=== PATIENT | female | born 1990 | race Caucasian/White ===

== ENCOUNTER 2016-06-08 21:34 | Emergency (ER) | payer OTHER ==
[~2016-06-08] VITALS: Ht 152.4 cm; Wt 57.3 kg
[~2016-06-08 21:34] MED LIST: BCP DAILY; [UNRECOGNIZED DRUG - REMARK]
[2016-06-08] MEDS ORDERED: LIDOCAINE/EPINEPH/TETRACAINE 1 EA SYR EXT STA (21:39)
[2016-06-08 21:40] VITALS: TEMP 36.8; Ht 152.4 cm; Wt 57.3 kg
[2016-06-08 22:05] LABS: BASO % 0.2 %; BASO ABS # 0.01 K/uL (0-0.2); COMPLETE YES; EOS % 0.8 %; HEMATOCRIT 40.6 % (37-47); IG% 0.2 %; LYMPH % 16.8 %; LYMPH ABS # 0.84 K/uL (1.2-3.4); MEAN CORPUSCULAR HEMOGLOBIN 29.9 pg (25-34); MEAN CORPUSCULAR HGB CONC 36.5 g/dl (32-36); MONO % 8.6 %; NEUT % 73.4 %; PLATELET COUNT 205 K/uL (130-400); RED BLOOD COUNT 4.95 M/uL (4.2-5.4); WHITE BLOOD COUNT 4.99 K/uL (4.8-10.8)
[2016-06-08 22:22] LABS: URINE APPEARANCE CLEAR (CLEAR); URINE BILIRUBIN NEG (NEG); URINE COLOR YELLOW; URINE EPITHELIAL CELL AUTO >30 /lpf (0-5); URINE NITRITE NEG (NEG); URINE SPECIFIC GRAVITY 1.001 (1.000-1.030); UROBILINOGEN NEG (NEG)
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
[2016-06-08 22:23] LABS: ALT/SGPT 12 U/L (12-78); BLOOD UREA NITROGEN 10 mg/dl (7-18); BUN/CREATININE RATIO 13.6 (10-20); CALCIUM 9.1 mg/dl (8.5-10.1); CARBON DIOXIDE 25 mmol/L (21-32); CHLORIDE 104 mmol/L (98-107); CREATININE 0.73 mg/dl (0.60-1.20); GLUCOSE 96 mg/dl (70-99); POTASSIUM 3.5 mmol/L (3.5-5.1); SODIUM 140 mmol/L (136-145)
[2016-06-08 22:25] LABS: MANUAL MICROSCOPIC REQUIRED? NO; REVIEW REQ? NO
[2016-06-08 22:26] LABS: ALKALINE PHOSPHATASE 49 U/L (45-117); AST/SGOT 11 U/L (15-37)
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
[2016-06-08 22:32] VITALS: O2SAT 100
[2016-06-08 22:34] LABS: PREG INTERNAL NEGATIVE QC NEG CLEAR BACKGROUND; PREG INTERNAL POSITIVE QC POS CONTROL LINE
[2016-06-08] MEDS ORDERED: ACETAMINOPHEN 500 MG TAB PO STA (22:58)
[2016-06-08] MEDS ORDERED: DOXYCYCLINE HYCLATE 100 MG CAP PO ONE (23:15)
[2016-06-08] MEDS ORDERED: DOXY100C2 PO (23:16)
[2016-06-08 23:52] VITALS: BP 103/75; PULSE 95; O2SAT 100
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
== END 2016-06-08 23:53 | disposition home or self-care (01) ==
LOC: EDBD 21:34 → C.EDC 21:35
DX: S89.92XA Unspecified injury of left lower leg, initial encounter (principal); S69.91XA Unspecified injury of right wrist, hand and finger(s), initial encounter; S02.2XXB Fracture of nasal bones, initial encounter for open fracture; S09.90XA Unspecified injury of head, initial encounter; V86.52XA Driver of snowmobile injured in nontraffic accident, initial encounter; J18.9 Pneumonia, unspecified organism; Z87.891 Personal history of nicotine dependence